=== PATIENT | male | born 1975 | race Caucasian/White ===

== ENCOUNTER 2020-08-26 08:02 | Emergency (ER) | payer SELFPAY ==
[~2020-08-26] VITALS: Ht 170.2 cm; Wt 68.0 kg
[2020-08-26] MEDS ORDERED: IBUPROFEN 600MG TABLET PO STA (08:12)
[2020-08-26] MEDS ORDERED: ACETAMINOPHEN 325MG TABLET PO STA (08:12)
[2020-08-26 08:34] LABS: CLARITY URINE CLEAR (CLEAR); COLOR URINE YELLOW (YELLOW); KETONES URINE NEGATIVE (NEGATIVE); LEUKOCYTE ESTERASE URINE NEGATIVE (NEGATIVE); NITRITE URINE NEGATIVE (NEGATIVE); OCCULT BLOOD URINE 1+ (NEGATIVE); PH URINE 7.5 (4.5-8.0); PROTEIN URINE 1+ (NEGATIVE); SPECIFIC GRAVITY URINE 1.022 (1.005-1.030); UROBILINOGEN URINE 0.2 E.U./dL (0.2-1.0)
[2020-08-26 09:19] LABS: BASOPHILS % 0.6 % (0.0-2.0); EOSINOPHILS % 0.7 % (0.0-5.0); HEMATOCRIT. 42.7 % (42.0-52.0); HEMOGLOBIN. 14.6 g/dL (14.0-18.0); LYMPHOCYTES % 12.8 % (20.0-50.0); MEAN CORPUSCULAR HEMOGLOBIN 29.3 pg (28.0-32.0); MEAN CORPUSCULAR VOLUME 85.5 fL (80.0-94.0); MEAN PLATELET VOLUME 8.7 fl (7.4-10.4); NEUTROPHILS % 76.9 % (40.0-76.0); PLATELET 185 x1000/uL (130-400); RED BLOOD CELL COUNT 4.99 mill/uL (4.7-6.1); RED CELL DISTRIBUTION WIDTH 13.3 % (11.6-14.6)
[2020-08-26 09:22] LABS: CHLORIDE 106 mEq/L (98-107)
[2020-08-26] MEDS ORDERED: IBUP-1523 PO (09:30)
[2020-08-26 09:44] VITALS: BP 136/98
== END 2020-08-26 10:03 | disposition home or self-care (01) ==
LOC: ER 10:00
DX: R31.29 Other microscopic hematuria (principal)
CPT/HCPCS: 36415; 80048; 81003; 85025; 99283

== ENCOUNTER 2021-07-12 19:51 | Emergency (ER) | payer MEDICAID ==
[~2021-07-12] VITALS: Ht 170.2 cm; Wt 70.0 kg
[~2021-07-12 19:51] MED LIST: IBUP-1523 PO
[2021-07-12 20:12] VITALS: BP 131/84
== END 2021-07-12 23:04 | disposition home or self-care (01) ==
LOC: ER 19:51
DX: K22.0 Achalasia of cardia (principal)
CPT/HCPCS: 99281